=== PATIENT | male | born 1950 | race Caucasian/White ===

== ENCOUNTER 2021-02-05 09:05 | Outpatient (CLI) | payer MEDICARE, MEDICAID | END 2021-02-05 09:06 | disposition critical access hospital (66) | LOC: EMS 09:05 | DX: R14.0 Abdominal distension (gaseous) (principal) | CPT/HCPCS: A0425; A0429 ==

== ENCOUNTER 2021-02-05 09:23 | Emergency (ER) | payer MEDICARE, MEDICAID ==
[2021-02-05] MEDS ORDERED: MORPHINE 2 MG/ML CARPUJECT IVP STA (09:43)
--- NOTE | 2021-02-05 09:45 | ED Physician Documentation ---
PD HPI ABD PAIN - Stated complaint Stated Complaint: ABD PX - Chief complaint Chief Complaint: Abd Pain - History obtained from History obtained from: Patient, EMS - Additional information Additional information: 70-year-old gentleman with dementia arrives by ambulance for complaints of abdominal pain and vomiting. Sounds like it started last night and associated with abdominal pain and distention. Unknown when his last bowel movement. History is limited due to dementia. Tried calling his daughter on initial evaluation and left voicemail to call me back. Review of Systems Unable to obtain: Dementia PD PAST MEDICAL HISTORY - Present Medications Home Medications: Ambulatory Orders Medication Instructions Recorded Confirmed Docusate Sodium [Dulcolax Stool 100 mg PO BID #60 cap 02/05/21 Softener] polyethylene glycoL 3350 [Miralax] 17 gm PO DAILY PRN #1 bottle 02/05/21 - Allergies Allergies/Adverse Reactions: Allergies Allergy/AdvReac Type Severity Reaction Status Date / Time NSAIDS (Non-Steroidal Allergy Unknown Verified 02/05/21 09:36 Anti-Inflamma Penicillins Allergy Unknown Verified 02/05/21 09:36 PD ED PE NORMAL - Vitals Vital signs reviewed: Yes - General General: Other (He is alert and oriented to person but not place or time or events.) - Neck Neck: Supple, no meningeal sign, No bony TTP - Cardiac Cardiac: Other (Tachycardic but regular with 2 out of 6 blowing decrescendo systolic murmur) - Respiratory Respiratory: No respiratory distress, Clear bilaterally - Abdomen Abdomen: Other (Abdomen is distended, tympanic to percussion and diffusely significantly tender.) - Back Back: No CVA TTP, No spinal TTP - Derm Derm: Normal color, Warm and dry, No rash - Extremities Extremities: No edema, No calf tenderness / cord - Neuro Eye Opening: Spontaneous Motor: Obeys Commands Verbal: Confused GCS Score: 14 Results - Vitals Vitals: Vital Signs - 24 hr 02/05/21 02/05/21 02/05/21 09:31 09:43 10:00 Temperature 36.6 C 36.7 C Heart Rate 123 H 124 H 123 H Respiratory 25 H 26 H 22 Rate Blood Pressure 152/117 H 147/113 H 145/112 H O2 Saturation 99 94 02/05/21 02/05/21 02/05/21 10:13 10:30 12:00 Temperature Heart Rate 120 H 119 H 109 H Respiratory 22 23 17 Rate Blood Pressure 154/120 H 146/112 H 133/113 H O2 Saturation 99 100 100 02/05/21 02/05/21 14:28 15:26 Temperature Heart Rate 118 H 104 H Respiratory 12 19 Rate Blood Pressure 118/96 H 95/76 O2 Saturation 94 92 Oxygen O2 Source Nasal cannula Oxygen Flow Rate 2 - Labs Labs: Laboratory Tests 02/05/21 02/05/21 02/05/21 09:49 09:49 09:49 WBC 9.9 RBC 5.23 Hgb 17.1 Hct 53.7 H MCV 102.7 H MCH 32.7 H MCHC 31.8 L RDW 14.5 Plt Count 230 MPV 12.0 H Neut # (Auto) 8.3 H Lymph # (Auto) 0.7 L Wright # (Auto) 0.8 Eos # (Auto) 0.0 Baso # (Auto) 0.0 Absolute Nucleated RBC 0.00 Nucleated RBC % 0.0 Sodium 145 Potassium 5.0 Chloride 103 Carbon Dioxide 30 Anion Gap 12.0 BUN 36 H Creatinine 1.3 H Estimated GFR (MDRD) 54 L Glucose 108 H Lactic Acid 1.7 Calcium 9.6 Total Bilirubin 1.3 H AST 24 ALT 12 Alkaline Phosphatase 70 Total Protein 8.1 Albumin 3.9 Globulin 4.2 Albumin/Globulin Ratio 0.9 L Lipase 24 Last Dose Date Last Dose Time Valproic Acid 02/05/21 09:49 WBC RBC Hgb Hct MCV MCH MCHC RDW Plt Count MPV Neut # (Auto) Lymph # (Auto) Wright # (Auto) Eos # (Auto) Baso # (Auto) Absolute Nucleated RBC Nucleated RBC % Sodium Potassium Chloride Carbon Dioxide Anion Gap BUN Creatinine Estimated GFR (MDRD) Glucose Lactic Acid Calcium Total Bilirubin AST ALT Alkaline Phosphatase Total Protein Albumin Globulin Albumin/Globulin Ratio Lipase Last Dose Date NA Last Dose Time NA Valproic Acid 18.8 PD MEDICAL DECISION MAKING - ED course Complexity details: d/w family (daughter by phone several times) ED course: IMPRESSION: No infection or neoplasm found. Stool impaction within the rectum with the rectal diameter measuring up to 10 cm. Sigmoid colon distention also is present with internal stool in this pattern extends cephalad and rightward. Colonic obstipation, with additional finding of generalized fluid and gas distention of the small bowel. Colonic outflow obstruction is the presumed cause by the CT appearance. The gastric lumen is gas and fluid-filled also, likely secondary to downstream distention and obstructive influence of rectal impaction. 70-year-old gentleman presents with acute abdominal pain, very distended. Work- up demonstrates fecal impaction. Over several hours he was disimpacted using a combination of manual disimpaction, multiple enemas. He had large volume stool output and his belly was visibly less distended. Departure - Departure Disposition: 01 Home, Self Care Clinical Impression: Fecal impaction, Abdominal pain Condition: Good Record reviewed to determine appropriate education?: Yes Instructions: ED Impaction Fecal Treated Prescriptions: Docusate Sodium [Dulcolax Stool Softener] 100 mg PO BID #60 cap polyethylene glycoL 3350 [Miralax] 17 gm PO DAILY PRN #1 bottle PRN Reason: Constipation Comments: He should be having several small bowel movements a day, try to titrate the laxatives so that he is. Return if worsening.
[2021-02-05] MEDS ORDERED: IOPAMIDOL-300 100 ML VIAL ONE (09:49)
[2021-02-05 09:58] LABS: BASOPHILS % (AUTO) 0.3 %; HCT - HEMATOCRIT 53.7 % (42.0-52.0); HGB - HEMOGLOBIN 17.1 g/dL (14.0-18.0); LYMPHOCYTES # (AUTO) 0.7 10^3/uL (1.5-3.5); LYMPHOCYTES % (AUTO) 7.4 %; MEAN CORPUSCULAR HEMOGLOBIN 32.7 pg (27.0-31.0); MEAN CORPUSCULAR HGB CONC 31.8 g/dL (32.0-36.0); MEAN CORPUSCULAR VOLUME 102.7 fL (80.0-94.0); MONOCYTES # (AUTO) 0.8 10^3/uL (0.0-1.0); MONOCYTES % (AUTO) 8.5 %; NEUTROPHILS # (AUTO) 8.3 10^3/uL (1.5-6.6); NEUTROPHILS % (AUTO) 83.6 %; PLT - PLATELET COUNT 230 10^3/uL (130-450); RED BLOOD COUNT 5.23 10^6/uL (4.70-6.10); RED CELL DISTRIBUTION WIDTH 14.5 % (12.0-15.0); WHITE BLOOD COUNT 9.9 x10^3/uL (4.8-10.8)
--- NOTE | 2021-02-05 10:10 | XRAY Report ---
PROCEDURE: Chest 1 View X-Ray INDICATIONS: STAT upright re abd pain TECHNIQUE: One view of the chest was acquired. COMPARISON: None FINDINGS: Surgical changes and devices: None. Lungs and pleura: Lung apices are not visualized. No pleural effusions or pneumothorax. Lungs are hy poinflated. Mediastinum: Mediastinal contours appear normal. Heart is enlarged Bones and chest wall: No suspicious bony lesions. Overlying soft tissues appear unremarkable. Marke d gaseous distention of loops of colon and small bowel as well as the proximal stomach. IMPRESSION: Low lung volumes. No evidence acute cardiopulmonary disease process within limitations of the study. Reviewed by: Nicolasa Mitchell MD, PhD on 02/05/2021 10:09 AM PDT Approved by: Nicolasa Mitchell MD, PhD on 02/05/2021 10:09 AM PDT Station ID: [id number]
[2021-02-05 10:16] LABS: VALPROIC ACID (DEPAKOTE) 18.8 ug/mL
[2021-02-05 10:28] LABS: ALBUMIN 3.9 g/dL (3.2-5.5); ALBUMIN/GLOBULIN RATIO 0.9 (1.0-2.2); BILIRUBIN,TOTAL 1.3 mg/dL (0.2-1.0); CALCIUM 9.6 mg/dL (8.5-10.3); CREATININE 1.3 mg/dL (0.6-1.2); TOTAL PROTEIN 8.1 g/dL (6.7-8.2)
--- NOTE | 2021-02-05 11:09 | CT Report ---
PROCEDURE: Abdomen/Pelvis W INDICATIONS: abd pain IV only CONTRAST: IV CONTRAST: Isovue 300 ml: 100 PO CONTRAST: *NO PO CONTRAST TECHNIQUE: After the administration of contrast, 5 mm thick sections acquired from the diaphragms to the sym physis. 5 mm thick coronal and sagittal reformats were acquired. For radiation dose reduction, the following was used: automated exposure control, adjustment of mA and/or kV according to patient size . COMPARISON: Chest single view same day reviewed.. FINDINGS: Image quality: Excellent. ABDOMEN: Lung bases: Lung bases are abnormal, with a mild patchy alveolar infiltration pattern, potentially a manifestation of early atypical/viral pneumonia.. Heart size is normal. Solid organs: Liver and spleen are normal in size and enhancement. Gallbladder Biliary system is non dilated. Pancreas enhances normally. No adrenal nodules. Kidneys demonstrate normal size an d enhancement, without hydronephrosis. Peritoneum and bowel: Bowel loops demonstrate normal wall thickness but prominently increased large and small bowel caliber. Small bowel loops measure up to 5 cm with the upper limits of normal at 3 c m. The sigmoid colon wall thickness is normal but the caliber measures up to 10 cm. There is fecal im paction with distention of the rectum up to 10 cm also. No free fluid or air. Nodes and vessels: No retroperitoneal or mesenteric adenopathy by size criteria. Aorta and inferior vena cava are normal in size. Miscellaneous: No ventral hernias. PELVIS: Genitourinary: Bladder wall thickness is normal. Miscellaneous: No inguinal hernias or adenopathy. Prominent colonic and small bowel distention is p resent in this patient extending from the abdomen into the pelvis. As noted above the rectum shows im paction by stool, measuring up to 10 cm diameter. The bladder is mildly prominent in caliber, having a maximal transverse dimension of 12.8 cm. Bones: No suspicious bony lesions. No vertebral body compression fractures. IMPRESSION: No infection or neoplasm found. Stool impaction within the rectum with the rectal diamet er measuring up to 10 cm. Sigmoid colon distention also is present with internal stool in this patter n extends cephalad and rightward. Colonic obstipation, with additional finding of generalized fluid a nd gas distention of the small bowel. Colonic outflow obstruction is the presumed cause by the CT nu earance. The gastric lumen is gas and fluid-filled also, likely secondary to downstream distention and obstruc tive influence of rectal impaction. Reviewed by: Shine Muir MD on 02/05/2021 11:08 AM PDT Approved by: Shine Muir MD on 02/05/2021 11:08 AM PDT Station ID: [id number]
[2021-02-05] MEDS ORDERED: IOPAMIDOL-300 100 ML VIAL IVP ONE (11:26)
[2021-02-05] MEDS ORDERED: bisacodyL 5 MG TABLET PO STA (12:53)
[2021-02-05] MEDS ORDERED: MAGNESIUM CITRATE 296 ML BOTTLE PO STA (12:53)
[2021-02-05] MEDS ORDERED: SODIUM CHLORIDE 0.9% 1,000 ML IV STA (13:57)
[2021-02-05 16:44] VITALS: BP 119/97
== END 2021-02-05 18:24 | disposition home or self-care (01) ==
LOC: ED 09:23
DX: K56.41 Fecal impaction (principal); R10.9 Unspecified abdominal pain; F03.90 Unspecified dementia, unspecified severity, without behavioral disturbance, psychotic disturbance, mood disturbance, and anxiety; R01.1 Cardiac murmur, unspecified; R00.0 Tachycardia, unspecified
CPT/HCPCS: 36415; 71045; 74177; 80053; 80164; 83605; 83690; 85025; 96361; 96374; 99281; 99284; A9270; Q9967

== ENCOUNTER 2021-02-05 18:35 | Outpatient (CLI) | payer MEDICARE, MEDICAID | END 2021-02-05 18:36 | disposition home or self-care (01) | LOC: EMS 18:35 | PROVIDERS: ATTEND Emergency Medicine | DX: F03.90 Unspecified dementia, unspecified severity, without behavioral disturbance, psychotic disturbance, mood disturbance, and anxiety (principal); R41.0 Disorientation, unspecified | CPT/HCPCS: A0425; A0428 ==